=== PATIENT | male | born 1980 | race American Indian/Alaskan Native ===

== ENCOUNTER 2022-02-06 08:56 | Emergency (ER) | payer SELFPAY ==
[2022-02-06 09:55] LABS: Alanine Aminotransferase 21 units/L (7-56); Albumin 4.4 g/dL (3.9-5); BUN/Creatinine Ratio 11; Blood Urea Nitrogen 13 mg/dL (9-20); Calcium 9.6 mg/dL (8.4-10.2); Hemolysis Index 5
[2022-02-06 10:03] LABS: Hematocrit 38.9 % (35.5-45.6); Hemoglobin 13.5 gm/dl (11.8-15.2); Mean Corpuscular HGB Conc 35 % (32-34); Mean Corpuscular Volume 82 fl (84-94); Platelet Count 407 K/mm3 (140-440); Red Blood Count 4.75 M/mm3 (3.65-5.03); Red Cell Distribution Width 13.9 % (13.2-15.2)
--- NOTE | 2022-02-06 10:12 | XRay Report ---
CHEST 2 VIEWS INDICATION / CLINICAL INFORMATION: chest pain. FINDINGS: SUPPORT DEVICES: None. HEART / MEDIASTINUM: No significant abnormality. LUNGS / PLEURA: No significant pulmonary or pleural abnormality. No pneumothorax. ADDITIONAL FINDINGS: No significant additional findings. IMPRESSION: 1. No acute findings. Signer Name: Monico Sanon MD Signed: 02/06/2022 10:08 AM Workstation Name: [id number]
[2022-02-06] MEDS ORDERED: ASPIRIN 325 MG TAB PO ONE (10:25)
[2022-02-06] MEDS ORDERED: NITROGLYCERIN 2% OINT 1 GM TP ONE (10:35)
[2022-02-06] MEDS ORDERED: fentaNYL 100 MCG/2 ML INJ IV ONE (10:35)
[2022-02-06] MEDS ORDERED: ONDANSETRON 4 MG/2 ML INJ IV ONE (10:35)
--- NOTE | 2022-02-06 10:35 | Emergency Department Report ---
HPI - General Chief Complaint: Chest Pain Time Seen by Provider: 02/06/22 10:23 - HPI HPI: Room 20 The patient is a 41-year-old male present with a chief complaint of chest pain. Patient states approximate 1 hour prior to arrival he developed substernal left- sided chest pain described as a squeezing pressure that has been constant in nature. Patient admits to shortness of breath with this pain but denies nausea/vomiting or diaphoresis. Patient states his pain has lessened since its onset but is still present and he gives it a score of 2/10. Patient states he is never had a stress test or cardiac catheterization ED Past Medical Hx - Past Medical History Previous Medical History?: Yes Hx Hypertension: Yes Hx Diabetes: No (Prediabetes) - Surgical History Past Surgical History?: No - Family History Family history: no significant - Social History Smoking Status: Never Smoker Substance Use Type: Alcohol (Occasional), Marijuana ED Review of Systems ROS: Stated complaint: CHEST PAIN Other details as noted in HPI Constitutional: denies: diaphoresis Eyes: denies: eye pain ENT: denies: throat pain Respiratory: shortness of breath Cardiovascular: chest pain Endocrine: no symptoms reported Gastrointestinal: denies: nausea, vomiting Genitourinary: denies: dysuria Musculoskeletal: denies: back pain Neurological: denies: headache Physical Exam - Physical Exam Vital Signs: Vital Signs 02/06/22 02/06/22 02/06/22 08:58 09:58 10:01 Temperature 97.7 F 98.4 F Pulse Rate 88 75 Respiratory 18 15 19 Rate Blood Pressure 162/97 Blood Pressure 135/85 [Right] O2 Sat by Pulse 100 98 98 Oximetry Physical Exam: GENERAL: The patient is well-developed well-nourished male lying on stretcher not appearing to be in acute distress. [] HEENT: Normocephalic. Atraumatic. Extraocular motions are intact. Patient has moist mucous membranes. NECK: Supple. Trachea midline CHEST/LUNGS: Clear to auscultation. There is no respiratory distress noted. HEART/CARDIOVASCULAR: Regular. There is no tachycardia. There is no gallop rub or murmur. ABDOMEN: Abdomen is soft, nontender. Patient has normal bowel sounds. There is no abdominal distention. SKIN: There is no rash. There is no edema. There is no diaphoresis. NEURO: The patient is awake, alert, and oriented. The patient is cooperative. The patient has no focal neurologic deficits. The patient has normal speech. GCS 15 MUSCULOSKELETAL: There is no evidence of acute injury. ED Course Vital Signs 02/06/22 02/06/22 02/06/22 08:58 09:58 10:01 Temperature 97.7 F 98.4 F Pulse Rate 88 75 Respiratory 18 15 19 Rate Blood Pressure 162/97 Blood Pressure 135/85 [Right] O2 Sat by Pulse 100 98 98 Oximetry ED Medical Decision Making - Lab Data Result diagrams: 02/06/22 09:20 02/06/22 09:20 Laboratory Tests 02/06/22 02/06/22 09:20 09:20 WBC 5.9 RBC 4.75 Hgb 13.5 Hct 38.9 MCV 82 L MCH 28 MCHC 35 H RDW 13.9 Plt Count 407 Sodium 141 Potassium 4.5 Chloride 103.7 Carbon Dioxide 28 Anion Gap 14 BUN 13 Creatinine 1.2 Estimated GFR > 60 BUN/Creatinine Ratio 11 Glucose 114 H Calcium 9.6 Total Bilirubin < 0.20 AST 17 ALT 21 Alkaline Phosphatase 63 Troponin T < 0.010 Total Protein 6.9 Albumin 4.4 Albumin/Globulin Ratio 1.8 - EKG Data -: EKG Interpreted by Me EKG shows normal: sinus rhythm Rate: normal - EKG Data When compared to previous EKG there are: previous EKG unavailable Interpretation: other (No ischemic changes seen) - Radiology Data Radiology results: report reviewed (Chest x-ray), image reviewed (Chest x-ray) interpreted by me: Chest x-ray-no definite focal infiltrates, no pneumothorax [facility] [address] [place] [address] XRay Report Signed Patient: NANCY ONTIVEROS MR#: [id number] : 1980 Acct:[id number] Age/Sex: 41 / M ADM Date: 02/06/22 Loc: ED Attending Dr: Ordering Physician: GRACIE TRIPLETT Date of Service: 02/06/22 Procedure(s): XR chest routine 2V Accession Number(s): [id number] cc: GRACIE TRIPLETT Fluoro Time In Minutes: CHEST 2 VIEWS INDICATION / CLINICAL INFORMATION: chest pain. FINDINGS: SUPPORT DEVICES: None. HEART / MEDIASTINUM: No significant abnormality. LUNGS / PLEURA: No significant pulmonary or pleural abnormality. No pneumothorax. ADDITIONAL FINDINGS: No significant additional findings. IMPRESSION: 1. No acute findings. Signer Name: Monico Sanon MD Signed: 02/06/2022 10:08 AM Workstation Name: [id number] Transcribed By: BC Dictated By: Monico Sanon MD Electronically Authenticated By: Monico Sanon MD Signed Date/Time: 02/06/22 1008 DD/ 1007 TD/TT: - Differential Diagnosis ACS, pericarditis, GERD Critical care attestation.: If time is entered above; I have spent that time in minutes in the direct care of this critically ill patient, excluding procedure time. ED Disposition Clinical Impression: Chest pain Disposition: ADMITTED INPATIENT Is pt being admited?: Yes Does the pt Need Aspirin: Yes Condition: Fair Instructions: Nonspecific Chest Pain, Adult Time of Disposition: 10:35 (Care transferred to hospitalist (Case discussed with Dr. Arroyo)) Heart Score - HEART Score History: Highly suspicious EKG: Non-specific Age: < 45 Risk factors: 1-2 risk factors Troponin: < normal limit HEART Score: 4 - EKG Read Time Time EKG Completed: 09:03 EKG Read Time: 09:05
--- NOTE | 2022-02-06 11:35 | Electrocardiograph Report ---
[facility] Test Date: 2022-02-06 Test Time: 09:03:02 Pat Name: NANCY ONTIVEROS Department: Room: Gender: M Clinical Abstractor: KYRIE : 1980 Requested By: MURRAY NUNEZ Order Number: [id number] Reading MD: Paul Wooten Measurements Intervals [place] Rate: 87 P: 53 KS: 140 QRS: 59 QRSD: 73 T: 10 QT: 339 QTc: 408 Interpretive Statements Sinus rhythm nonspecific st-t No previous ECG available for comparison Electronically Signed On 02-06-2022 11:35:37 EDT by Paul Wooten
--- NOTE | 2022-02-06 15:01 | Consultation ---
History of Present Illness - Reason for Consult Consult date: 02/06/22 chest pain Requesting physician: RICHARD ALLEN - History of Present Illness 41 YO Male with PSA Presents ED for evaluation. Patient states that he has experienced pain in his chest over the past 5 months. Patient states that pain is intermittent, 2/10 in severity, and frequent. Patient denies exacerbating factors. Patient transported to [facility] via private vehicle for further care and evaluation of the aforementioned symptoms. The patient was seen and evaluated in the emergency department. All lab and imaging surgery. Intervals and axes as noted on EKG was unremarkable and did not reveal any findings consistent with acute ischemia. D-dimer was normal. Cardiac enzymes were normal. Patient states that he was concerned and wanted "to get my blood vessels checked out" due to prior history of polysubstance abuse. Patient medically optimized and back to usual state of health. Patient discharged home instructed to follow-up primary care physician in 3 to 5 days. Patient struck to follow-up with cardiology within 1 week for further care and evaluation. Patient instructed to have all age-appropriate screening test. Physical Exam: GENERAL: The patient is well-developed well-nourished male lying on stretcher not appearing to be in acute distress. Patient eating lunch. [] HEENT: Normocephalic. Atraumatic. Extraocular motions are intact. Patient has moist mucous membranes. NECK: Supple. Trachea midline CHEST/LUNGS: Clear to auscultation. There is no respiratory distress noted. HEART/CARDIOVASCULAR: Regular. There is no tachycardia. There is no gallop rub or murmur. ABDOMEN: Abdomen is soft, nontender. Patient has normal bowel sounds. There is no abdominal distention. SKIN: There is no rash. There is no edema. There is no diaphoresis. NEURO: The patient is awake, alert, and oriented. The patient is cooperative. The patient has no focal neurologic deficits. The patient has normal speech. GCS 15 MUSCULOSKELETAL: There is no evidence of acute injury. Medications and Allergies Allergies Allergy/AdvReac Type Severity Reaction Status Date / Time No Known Allergies Allergy Verified 02/06/22 09:00 Exam - Constitutional Vitals: Temp Pulse Resp BP Pulse Ox 98.4 F 80 18 125/83 96 02/06/22 09:58 02/06/22 14:42 02/06/22 14:42 02/06/22 14:30 02/06/22 14:42 Results - Labs CBC & Chem 7: 02/06/22 09:20 02/06/22 09:20 Labs: Abnormal lab results 02/06/22 02/06/22 Range/Units 09:20 09:20 MCV 82 L (84-94) fl MCHC 35 H (32-34) % Glucose 114 H (75-100) mg/dL
[2022-02-06 16:48] VITALS: BP 121/70
== END 2022-02-06 16:49 | disposition admitted as inpatient to this hospital (09) ==
LOC: ED 08:56
DX: R07.89 Other chest pain (principal); I10 Essential (primary) hypertension; F12.90 Cannabis use, unspecified, uncomplicated; Z72.89 Other problems related to lifestyle; Z79.899 Other long term (current) drug therapy
CPT/HCPCS: 36415; 71046; 80053; 84484; 85027; 85379; 93005; 96374; 96375; 99284; J2405; J3010